=== PATIENT | male | born 1930 ===

== ENCOUNTER 2019-02-02 13:02 | Emergency (ER) | payer MEDICARE, MEDICAID ==
[2019-02-02 13:29] VITALS: BMI 23.3
[2019-02-02 13:36] VITALS: O2SAT 95
--- NOTE | 2019-02-02 14:17 | C.PDOC ---
History Of Present Illness VIA TRANS LIMITED DUE TO UNAVAIL LITHUANIAN SIGN LANGUAGE INTERPRET NEW ONSET R BP X 4 DAYS. NO TRAUMA. WORSE W MOVEMENT. TOOK UNK PAIN MEDS THIS MORNING. DENIES OTHER ASSOC SX EXAM NONTOXIC BACK LIMITED FULL MOVEMENT NO SPINAL TEND ATRAUM NO CVAT NEURO INTACT EXT AROM WO DIFF ATRAUM Time Seen by Provider: 02/02/19 13:41 Chief Complaint (Nursing): Back Pain History Per: Patient History/Exam Limitations: no limitations Onset/Duration Of Symptoms: Days Current Symptoms Are (Timing): Still Present Severity: Moderate Past Medical History Reviewed: Historical Data, Nursing Documentation, Vital Signs Vital Signs: Last Vital Signs Temp 97.5 F L 02/02/19 13:10 Pulse 74 02/02/19 13:10 Resp 15 02/02/19 13:10 BP 147/80 02/02/19 13:10 Pulse Ox 95 02/02/19 13:10 - Medical History PMH: CAD, COPD, Emphysema, Malignancy (colon) Surgical History: CABG Family History: States: No Known Family Hx - Social History Hx Alcohol Use: No Hx Substance Use: No - Immunization History Hx Tetanus Toxoid Vaccination: No Hx Influenza Vaccination: No Hx Pneumococcal Vaccination: No Review Of Systems Except As Marked, All Systems Reviewed And Found Negative. Constitutional: Negative for: Fever, Chills Gastrointestinal: Negative for: Nausea, Vomiting, Abdominal Pain Genitourinary: Negative for: Dysuria, Frequency, Incontinence, Hematuria Musculoskeletal: Positive for: Back Pain Physical Exam - Physical Exam Appears: Non-toxic Skin: Normal Color, Warm, Dry Head: Atraumatic, Normacephalic Eye(s): bilateral: Normal Inspection Neck: Supple Chest: Symmetrical Cardiovascular: Rhythm Regular Respiratory: Normal Breath Sounds, No Rales, No Rhonchi, No Wheezing Back: No CVA Tenderness, No Paraspinal Tenderness, Other (limited full movement, atraumatic) Extremity: Normal ROM (AROM w/o difficulty) Extremity: Bilateral: Atraumatic Neurological/Psych: Oriented x3, Normal Speech, Other (neuro intact) ED Course And Treatment ECG: Interpreted By Me ECG Rhythm: Sinus Rhythm ECG Interpretation: Normal Rate From EC O2 Sat by Pulse Oximetry: 95 (RA) Pulse Ox Interpretation: Normal Progress - Re-Evaluation Re-evaluation Note: 02/02/19 14:17 PER DAUGHTER KENRICK WHITE [phone]: PAIN ONSET SINCE LIFTING SOMETHING HEAVY 4 DAYS AGO. NEW ONSET RADIATION R BUTTOCK.GROIN TODAY. INITIAL RELIEF W OTC PAIN PATCH AND TYLENOL LAST DOSE @ 1100. TODAY MORE INTENSE. NO DIRECT TRAUMA. 02/02/19 15:58 FEELS BETTER NOW ASYMPT. IMPROVED ROM. 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 PT - Data Reviewed Data Reviewed: EKG Medical Decision Making Medical Decision Making: Plan: --EKG --Flexeril PO --Toradol IM --Lidoderm Patch Disposition Counseled Patient/Family Regarding: Studies Performed, Diagnosis, Need For Followup, Rx Given - Disposition Referrals: YOUR,PMD [Other] Disposition: HOME/ ROUTINE Disposition Time: 15:58 Condition: IMPROVED Prescriptions: Cyclobenzaprine [Flexeril] 10 mg PO TID #15 tab Ibuprofen [Motrin] 400 mg PO QID #30 tab Lidocaine 5% [Lidoderm] 2 patch TOP ONCE PRN #20 patch MDD 3 PATCHES PRN Reason: Pain, Moderate (4-7) Instructions: Sciatica (DC) Forms: [employer] (Swazi) Print Language: SAUDI ARABIAN - Clinical Impression Clinical Impression: Sciatica - Scribe Statement The provider has reviewed the documentation as recorded by the Mercedes Blank Provider Attestation: All medical record entries made by the Forrestibe were at my direction and personally dictated by me. I have reviewed the chart and agree that the record accurately reflects my personal performance of the history, physical exam, medical decision making, and the department course for this patient. I have also personally directed, reviewed, and agree with the discharge instructions and disposition.
[2019-02-02] MEDS ORDERED: Lidocaine 5% Patch TD STA (14:28)
[2019-02-02] MEDS ORDERED: Lidocaine 5% Patch TD ONE ×2 (14:45→15:05)
[2019-02-02 17:38] VITALS: BP 131/62; PULSE 61; RESP 15; TEMP 98
--- NOTE | 2019-02-03 16:40 | CARD ---
APPROVED REPORT Date of service: 02/02/2019 EKG Measurement Heart [id number] <Conclusion> Normal sinus rhythm Septal infarct, age undetermined cannot be excluded. Abnormal ECG
== END 2019-02-02 17:52 | disposition home or self-care (01) ==
LOC: C.ER 13:02
DX: M54.30 Sciatica, unspecified side (principal); I25.10 Atherosclerotic heart disease of native coronary artery without angina pectoris; Z95.1 Presence of aortocoronary bypass graft; Z87.891 Personal history of nicotine dependence
CPT/HCPCS: 93005; 96372; 99284; J1885